=== PATIENT | female | born 1960 | race Caucasian/White ===

== ENCOUNTER → 2017-10-11 16:22 | Outpatient (CLI) | payer OTHER | END | disposition home or self-care (01) | LOC: D.MAMMO 13:15 | DX: Z12.31 Encounter for screening mammogram for malignant neoplasm of breast (principal) ==

== ENCOUNTER 2020-01-02 11:00 | Outpatient (CLI) | payer OTHER | END 2020-01-02 11:05 | disposition home or self-care (01) | LOC: D.MAMMO 11:00 | PROVIDERS: ATTEND Nurse Practitioner Family | DX: Z12.31 Encounter for screening mammogram for malignant neoplasm of breast (principal) ==